=== PATIENT | female | born 1965 | race Caucasian/White ===

== ENCOUNTER 2017-02-11 15:34 | Emergency (ER) | payer MEDICARE, MEDICAID ==
[~2017-02-11] VITALS: Ht 152.4 cm; Wt 82.7 kg
[~2017-02-11 15:34] MED LIST: ATEN50TA7 PO; CLONAZEPAM0.5 M1 PO; GLPZ5T1 PO; GLU500 PO; LOV40 SQ; OXYC-176 PO
[2017-02-11 15:36] VITALS: BP 114/88; PULSE 81; RESP 16; O2SAT 97
--- NOTE | 2017-02-11 15:47 | ED.REPORT ---
HPI-General Illness Date of Service Feb 11, 2017 ED Provider: Clarita Mendoza MD A 51 year old female with a history of diabetes and foot and arm neuropathy presents to the ED complaining of left sided back pain,that stretches from left hip to left shoulder, onset 4-5 days ago. Pain was initially tender but then became progressively worse. She describes the area as tender from the spine outwards and "hard." She cannot lay or sit down. Associated symptoms include difficulty breathing, describing that she cannot get a full breath. She has hot flashes, but she denies any fever, chills, or problems with urination. Nursing Notes Stated Complaint: LEFT SIDE PAIN Chief Complaint: General Complaint Nursing Notes Reviewed: Yes Allergies: Coded Allergies: Penicillins (Verified Allergy, Severe, Anaphylaxis, 02/11/17) thiabendazole (Verified Allergy, Severe, Anaphylaxis, 02/11/17) Uncoded Allergies: BEE VENOM (Allergy, Severe, 09/29/16) MINT (Allergy, Unknown, 09/29/16) Scheduled Atenolol-Expunged Drug, Do Not Renew! (Atenolol-Expunged Drug, Do Not Renew!) 50 Mg Tablet 50 MG PO AM Enoxaparin-Expunged Drug, Do Not Renew! (Lovenox-Expunged Drug, Do Not Renew!) 40 Mg/0.4 Ml Disp.syrin 40 MG SQ DAILY Metformin-Expunged Drug, Do Not Renew! (Metformin-Expunged Drug, Do Not Renew!) 500 Mg Tablet 500 MG PO BID clonazePAM-Expunged Drug, Do Not Renew! (clonazePAM-Expunged Drug, Do Not Renew! ) 0.5 Mg Tablet 0.5 MG PO PRN glipiZIDE-Expunged Drug, Do Not Renew! (glipiZIDE-Expunged Drug, Do Not Renew!) 5 Mg Tablet 5 MG PO BID Scheduled PRN Oxycodone/APAP-Expunged Drug, Do Not Renew! (Percocet 5/325-Expunged Drug, Do Not Renew!) 1 Each Tablet 1 TAB PO Q3-4HP PRN PRN General Time Seen by MD: 15:44 Chief Complaint Back pain Hx Obtained From: Patient Arrived By: Walk-in Sudden in Onset?: No Onset Occurred: 5 days ago (4-5 days ago) Symptom Duration: Since onset Location: : Back Severity: Current: Severe Severity: Maximum: Severe Recent Healthcare: No recent doctor visit Similar Sx Previous: No Past Medical History Past Medical History Notes: Past Medical History Foot and arm neuropathy. h/o lymphoma stable pulmonary nodules Reports: Diabetes mellitus Past Surgical History left knee replacement in 09 Reports: Cholecystectomy Smoking History Current Every Day Smoker Social History "[place]" smoking recovery porgram started about 1 week ago. Denies IV drug use Alcohol Use: Denies alcohol use Drug Use: THC (at night, for feet and leg neuropathy) Occupation lives with daughter, 09/29/2016 Review of Systems heat flashes Difficulty breathing Denies problems with urination Full Review of Systems Constitutional: Denies: Chills, Fever Musculoskeletal: Reports: Back pain Complete sys rev & neg: except as marked. Physical Exam Vital Signs Vital Signs Date Time Temp Pulse Resp B/P Pulse Ox O2 Delivery O2 Flow Rate FiO2 02/11/17 17:59 78 18 135/67 98 Room Air 02/11/17 15:36 36.8 81 16 114/88 97 Room Air Initial VS: Reviewed General/Constitutional: Awake, Alert Head / Eyes: Atraumatic, Normocephalic, PERRL, EOMI ENT: Atraumatic, Mucous membranes moist Respiratory / Chest: Breath sounds NL, Breath sounds = bilat, No respiratory distress, No rales, No rhonchi, No wheezing Left posterior rib cage down to left CVA, fullness all the way out, exquisitley tender wihthout point tenderness. Cardiovascular: Heart rate NL, Regular rhythm, Heart sounds NL, No gallop, No murmurs, No rubs Abdomen: No guarding, No rebound Skin: Atraumatic, Color NL, Warm, Dry Neurologic: Oriented X3, Speech NL Interpretation & Diagnostics Lab Results Interpretation Result Diagram: 02/11/17 1645 02/11/17 1645 Test 02/11/17 16:21 02/11/17 16:40 02/11/17 16:45 Hold Urine Received (Received) Hold Purple Top Tube Received (Received) Hold Blue Top Tube Received (Received) Hold [place] Top Tube Received (Received) Hold [place] Top Tube Received (Received) White Blood Count 13.8th/mm3 (3.8-10.1) Red Blood Count 5.39mil/mm3 (3.90-5.20) Hemoglobin 15.1g/dL (12.0-15.6) Hematocrit 44.4% (35.0-46.0) Mean Corpuscular Volume 82.4fL (81-100) Mean Corpuscular Hemoglobin 28.0pg (27.0-35.0) Mean Corpuscular Hemoglobin Concent 34.0% (32.0-37.0) Red Cell Distribution Width 12.5% (12.3-15.4) Platelet Count 336bil/L (150-400) Neutrophils (%) (Auto) 51.1% (40-74) Lymphocytes (%) (Auto) 37.0% (14-46) Monocytes (%) (Auto) 8.2% (4-12) Eosinophils (%) (Auto) 2.5% (0-5) Basophils (%) (Auto) 0.8% (0-3) Urine Color Straw (YELLOW) Urine Appearance Clear (CLEAR,HAZY) Urine pH 5.0 (5.0-8.0) Urine Specific [place] <1.005 (1.003-1.035) Urine Protein Negativemg/dL (NEG,TRACE) Urine Glucose (UA) >1000mg/dL (NEGATIVE) Urine Ketones Negativemg/dL (NEGATIVE) Urine Occult Blood Negative (NEGATIVE) Urine Nitrite Negative (NEGATIVE) Urine Bilirubin Negative (NEGATIVE) Urine Urobilinogen Normalmg/dL (NORMAL) Urine Leukocyte Esterase Small (NEGATIVE) Urine RBC 0-2/hpf (0-2) Urine WBC 0-5/hpf (0-5) Urine Epithelial Cells Moderate/hpf (NONE-MOD) Urine Crystals None seen (NONE SEEN) Urine Bacteria Few/hpf (NONE-FEW) Urine Hyaline Casts Rare/lpf (NONE) Urine Granular Casts None seen (NONE SEEN) Urine Waxy Casts None seen (NONE SEEN) Urine Red Blood Cell Casts None seen (NONE SEEN) Urine White Blood Cell Casts None seen (NONE SEEN) Urine Mucus None seen (None Seen) Urine Trichomonas None seen (NONE SEEN) Urine Yeast Few (NONE SEEN) Urinalysis Comment None Urine Culture Reflexed Indicated Sodium Level 128mEq/L (134-144) Potassium Level 3.4mEq/L (3.5-5.2) Chloride Level 85mEq/L (97-108) Carbon Dioxide Level 22mmol/L (18-29) Blood Urea Nitrogen 26mg/dL (6-24) Creatinine 0.85mg/dL (0.57-1.00) Estimat Glomerular Filtration Rate 100mL/min (>59) Glucose Level 425mg/dL (60-99) Calcium Level 9.7mg/dL (8.5-10.1) Magnesium Level 2.2mg/dL (1.6-2.6) Total Bilirubin 0.3mg/dL (0.0-1.2) Aspartate Amino Transf (AST/SGOT) 19U/L (0-50) Alanine Aminotransferase (ALT/SGPT) 9U/L (0-32) Alkaline Phosphatase 82U/L (25-150) Total Protein 8.1g/dL (6.4-8.4) Albumin 4.5g/dL (3.4-5.0) Lipase 25U/L (13-60) ECG Interpretation ECG Interpretation: Rate is 75. Sinus rhythm. Incomplete left bundle branch block. Inferior infarct, old. Time: 17:43 Interpreted by: ED physician CT Abd / Pelvis Interpretation IMPRESSION: 1. Cause of left flank pain and lower back pain is not identified. 2. In this patient with history of lymphoma there continues to be enlarged liver is slightly smaller than on the previous CT scan 2014. The multiple small nodules in the lungs are unchanged or smaller. No new nodules are seen. No adenopathy is seen. 3. Previous cholecystectomy. Dictated by: Marco Antonio Carlson M.D. on 02/11/2017 at 18:15 Approved by: Marco Antonio Carlson M.D. on 02/11/2017 at 18:29 Interpretation / Wet Read by: Interpret - Radiologist Re-Eval/Medical Decision Source of Hx: Old records Counseled Regarding: Diagnosis, Lab results, Need for follow-up, When/why to return to ED Discharge & Departure Primary Impression: Pleurisy Additional Impression: Chest pain, non-cardiac Disposition: Home Additional Instructions: Your lab work and CT scan of the chest and abdomen is unremarkable and quite reassuring. I see no evidence of severe lung disease, heart disease, or kidney disease I see no evidence for infection. In looking very closely at the CT scan over the area of your back and flank, that area that hurts, there are no abnormalities appreciated My best explanation for your pain at this point is likely some type of pleuritic pain. Ibuprofen is going to be degenerative choice for this. With the severity of the pain you are currently having, and inability to sleep, I do believe that one to 2 days of narcotic use for the acute pain will likely be helpful If you find that you are getting worse, please feel free to return to the emergency department for additional evaluation. I hope you feel better soon Referrals: Harpreet Rich MD (PCP) Scribe Attestation Portions of this note were transcribed by Eduar Fitzpatrick. I, Dr. Mendoza personally performed the history, physical exam and medical decision-making; I reviewed and confirmed the accuracy of the information in the transcribed note. Signed by: Liss Perez, 02/11/2017, 1849. copies to: Harpreet Rich MD, Shawna L MD Feb 11, 2017 15:47 Eduar Fitzpatrick Feb 11, 2017 16:13
[2017-02-11] MEDS ORDERED: 0.9% Sodium Chloride 1,000 ML IV ONE (16:59)
[2017-02-11] MEDS ORDERED: HYDROmorphone 1 mg/mL Inj IVPUSH PRN (17:00)
[2017-02-11] MEDS ORDERED: Ondansetron 2 mg/mL 2 mL Inj IVPUSH PRN (17:00)
[2017-02-11] MEDS ORDERED: HYDROmorphone 0.5 mg/0.5 mL iSecure Syringe IVPUSH PRN (17:00)
[2017-02-11 17:16] LABS: BASOPHILS % (AUTO) 0.8 % (0-3); EOSINOPHILS % (AUTO) 2.5 % (0-5); MONOCYTES % (AUTO) 8.2 % (4-12); Mean Corpuscular Volume 82.4 fL (81-100); NEUTROPHILS % (AUTO) 51.1 % (40-74); Platelet Count 336 bil/L (150-400)
[2017-02-11 17:27] LABS: Magnesium 2.2 mg/dL (1.6-2.6)
[2017-02-11 17:43] LABS: APPEARANCE,URINE CLEAR (CLEAR,HAZY); COLOR,URINE STRAW (YELLOW)
[2017-02-11 17:44] LABS: OCCULT BLOOD,URINE NEGATIVE (NEGATIVE); UROBILINOGEN,URINE NORMAL (NORMAL)
[2017-02-11 17:59] VITALS: BP 135/67; PULSE 78; RESP 18; O2SAT 98
[2017-02-11 18:00] LABS: YEAST,URINE FEW (NONE SEEN)
--- NOTE | 2017-02-11 18:30 | DRSVH ---
PROCEDURE: CT CHEST, ABDOMEN AND PELVIS WITH CONTRAST ([id number]) INDICATIONS: Right flank/CVA/ post right thorax pain, history of lymphoma TECHNIQUE: After the administration of intravenous contrast, 5 mm thick sections acquired from the lung apices t o the symphysis. 5 mm coronal and sagittal reformats were performed, with additional 7 mm MIP reform ats through the lungs. For radiation dose reduction, the following was used: automated exposure con trol, adjustment of mA and/or kV according to patient size. COMPARISON: [facility], CT, NECK/CHEST/ABDOMEN/PELVIS W/CONTRAST, 08/05/2015, 12:39. FINDINGS: Image quality: Excellent. CHEST: Lungs and pleura: No acute airspace opacities. Scattered small peripheral nodular densities on the o rder of 34 mm are considered unchanged. The largest density at the right lung base has decreased in s ize from 17-14 mm in greatest dimension. No pleural effusions or pneumothorax. Central and periphera l airways appear patent and normal in caliber. Mediastinum: Heart size is normal. No pericardial effusion. No mediastinal or hilar adenopathy by size criteria. Those that are seen in the axilla and right hilum are unchanged. Thoracic aorta and ce ntral pulmonary arteries are normal in size. Esophagus is normal in caliber. No hiatal hernia. Chest wall: No axillary or supraclavicular adenopathy by size criteria. Thyroid gland is within nor mal limits.. ABDOMEN: Solid organs: Liver remains enlarged but has decreased slightly in overall size if there has been any change. In the coronal dimension it has decreased from 23.5 cm to 21.5 cm. Spleen is normal in size. Abnormal attenuation findings in the liver. Previously near the dome has decreased in conspicuity. S everal areas of the liver which suggests a focal/geographic fatty infiltration.. Gallbladder has bee n removed.. Biliary system is non dilated. Pancreas enhances normally. No adrenal nodules. Kidney s demonstrate normal size and enhancement, without hydronephrosis. Peritoneum and bowel: Bowel loops demonstrate normal wall thickness and caliber. No free fluid or a ir. Nodes and vessels: No retroperitoneal or mesenteric adenopathy by size criteria. Aorta and inferior vena cava are normal in size. Miscellaneous: No ventral hernias. PELVIS: Genitourinary: Bladder wall thickness is normal. Uterus and ovaries are not considered enlarged. Miscellaneous: No inguinal hernias or adenopathy. Bones: No suspicious bony lesions. No vertebral body compression fractures. IMPRESSION: 1. Cause of left flank pain and lower back pain is not identified. 2. In this patient with history of lymphoma there continues to be enlarged liver is slightly smaller than on the previous CT scan 2014. The multiple small nodules in the lungs are unchanged or smaller. No new nodules are seen. No adenopathy is seen. 3. Previous cholecystectomy. Dictated by: Marco Antonio Carlson M.D. on 02/11/2017 at 18:15 Approved by: Marco Antonio Carlson M.D. on 02/11/2017 at 18:29
[2017-02-11] MEDS ORDERED: OXYC1TAB24 PO (19:32)
[2017-02-11 19:43] VITALS: BP 139/68; PULSE 72; RESP 19; O2SAT 99
== END 2017-02-11 19:43 | disposition home or self-care (01) ==
LOC: SED 15:34
DX: R09.1 Pleurisy (principal); R07.89 Other chest pain; E11.9 Type 2 diabetes mellitus without complications; F17.200 Nicotine dependence, unspecified, uncomplicated; Z88.0 Allergy status to penicillin; Z88.8 Allergy status to other drugs, medicaments and biological substances; Z79.84 Long term (current) use of oral hypoglycemic drugs
CPT/HCPCS: 36415; 71260; 74177; 80053; 81000; 83690; 83735; 85025; 87086; 87088; 93005; 96361; 96374; 96375; 96376; 99285; J1170; J1885; J2405; J7030; Q9967

== ENCOUNTER → 2017-07-08 | Day surgery (SDC) | payer MEDICARE, MEDICAID ==
[~2017-07-08] VITALS: Ht 152.4 cm; Wt 91.0 kg
[2017-07-08] VITALS (8 sets, daily range): BP systolic 90–108; BP diastolic 53–76; PULSE 65–74; RESP 13–18; O2SAT 94–98
[~2017-07-08] MED LIST changes: +ASPI81TA3 PO; +ATEN1TAB3 PO; -ATEN50TA7 PO; +CLC200SP2; -CLONAZEPAM0.5 M1 PO; +Clindamycin 900 mg/50 mL D5W IV ONE; +Clindamycin 900 mg/50 mL D5W Premix IV ONE; +DULO60CA61 PO; +EPHEDrine Sulfate 50 mg/mL Inj IVPUSH PRN; +FAMO20T PO; +FAMO40TA6 PO; -GLPZ5T1 PO; -GLU500 PO; +Glycopyrrolate 0.2 MG/ML 1mL Inj ONE; +HYDR-656 PO; +HYDROmorphone 1 mg/mL Inj IVPUSH PRN; +IBUP800T28 PO; +INSU100I13 SUBQ; +INSU100I8 SUBQ; +LOSA25TA21 PO; -LOV40 SQ; +Lactated Ringer's 1,000 ML IV ONE; +Lactated Ringer's 1,000 ML IV SCH; +Lactated Ringer's 500 ML IV PRN; +Lidocaine 1%-Epi 1:100,000 20 mL Inj INFILTRATE ONE; +MetoCLOpramide 5 mg/mL 2 mL Inj IVPUSH PRN; +Neostigmine 1 mg/mL 10 mL Inj ONE; -OXYC-176 PO; +Ondansetron 2 mg/mL 2 mL Inj IVPUSH PRN; +Ondansetron 2 mg/mL 2 mL Inj ONE; +POTA20TA16 PO; +Phenylephrine 10,000 mCg/mL Inj IVPUSH PRN; +Propofol 10,000 mCg/mL 20 mL Inj ONE; +QUET300T PO; +SIMV20TA4 PO; +TIZA4TAB4 PO; +TOPI-31 PO; +fentaNYL-PF 50 mCg/mL 2 mL Inj IVPUSH PRN; +fentaNYL-PF 50 mCg/mL 2 mL Inj ONE; +oxyCODONE-Acetamin 5-325 mg Tablet PO PRN
--- NOTE | 2017-07-08 12:06 | PCM.HPANE ---
Patient Data Date of Service: Jul 08, 2017 Surgeon Admitting Provider: Attending Provider:Tal Layne DO Primary Care Physician:Harpreet Rich MD Other Provider:Mehul Olivas Anesthesia Reason for Visit Left Rotator Partial Tear, Acromial Clavicular Ht/WT & BMI Height (Feet): 5 Height (Inches): 0 Weight (Kilograms): 91 Body Mass Index 39.00 Allergies Coded Allergies: Penicillins (Verified Allergy, Severe, Anaphylaxis, 07/05/17) thiabendazole (Verified Allergy, Severe, Anaphylaxis, 07/05/17) Uncoded Allergies: BEE VENOM (Allergy, Severe, Anaphylaxis, 07/05/17) MINT (Allergy, Severe, Hives, then passes out, 07/05/17) Past Anesthesia History Anesthesia History: Denies:: Abnormal Airway, Anesthesia Reactions, Difficult Intubation, Fam Anesthesia Reaction, Fam Malignant Hypertherm, Malignant Hyperthermia Diabetes History Hx Diabetes?: Yes Type of Diabetes: Type II Glycemic Control: Insulin Dependent Current Bedside Blood Glucose: 88 MRSA MRSA: No Medications Last Dose Blood Thinner: Jul 05, 2017 Hypertension Medication: Yes Home Meds Incl Beta Emily: Yes Date Beta Emily Taken: Jul 08, 2017 Time Beta Emily Taken: 0800 Reported Medications Ibuprofen 800 Mg Efarwi492 Mg PO TID PRN For Pain Ref 0 07/05/17 Tizanidine 4 Mg Tablet4 Mg PO HS 07/05/17 Duloxetine 60 Mg Capsule.dr60 Mg PO BID Ref 0 07/05/17 Topiramate 100 Mg Xlprbq403 Mg PO BID Ref 0 07/05/17 Simvastatin 20 Mg Awdqul77 Mg PO QAM Ref 0 07/05/17 Quetiapine Fumarate (Seroquel)300 Mg Irbnia998 Mg PO HS Ref 0 07/05/17 Potassium Chloride 20 Meq Tab.er.prt20 Meq PO DAILY 30 Days Ref 0 TAKE WITH FOOD 07/05/17 Losartan Potassium 25 Mg Tiesjz85 Mg PO DAILY 07/05/17 Insulin Glargine (Lantus U100 Solostar Insulin Pen)100 Unit/1 Ml Insuln.pen20 Unit SUBQ BID #1 PENINJ Ref 0 07/05/17 hydrOXYzine Hcl (HydrOXYzine Hcl)25 Mg Lovxjw09 Mg PO TID PRN For Itching Ref 0 07/05/17 Famotidine (Pepcid)20 Mg Jxizrn85 Mg PO BID 07/05/17 Calcitonin [place] (Miacalcin)30 [place]/3.7 Ml Nasalspr1 [place] NA DAILY #1 BOTTLE [place] in 1 Nostril (Alternating Nostrils) Daily 07/05/17 Atenolol/Chlorthalidone 50-25 mg 1 Each Tablet1 Tablet PO DAILY . Ref 0 07/05/17 Aspirin Chew 81 Mg Chew81 Mg PO DAILY Ref 0 07/05/17 Insulin Glulisine (Apidra U100 Insulin Solostar Pen)100 Unit/1 Ml Insuln.pen1 Unit SUBQ DIRECTED PRN blood glucose #1 PENINJ Ref 0 07/05/17 Discontinued Reported Medications Famotidine 40 Mg Gnncol07 Mg PO HS Ref 0 07/05/17 Oxycodone/APAP-Expunged Drug, Do Not Renew! (Percocet 5/325-Expunged Drug, Do Not Renew!)1 Each Tablet1 Tab PO Q3-4HP PRN Ref 0 04/19/09 Enoxaparin-Expunged Drug, Do Not Renew! (Lovenox-Expunged Drug, Do Not Renew!) 40 Mg/0.4 Ml Disp.syrin40 Mg SQ DAILY 5 Days Ref 0 04/19/09 Metformin-Expunged Drug, Do Not Renew! 500 Mg Uxcxzu512 Mg PO BID Ref 0 04/15/09 glipiZIDE-Expunged Drug, Do Not Renew! 5 Mg Tablet5 Mg PO BID Ref 0 04/15/09 clonazePAM-Expunged Drug, Do Not Renew! 0.5 Mg Tablet0.5 Mg PO PRN Ref 0 04/19/09 Atenolol-Expunged Drug, Do Not Renew! 50 Mg Nbfuqv17 Mg PO AM Ref 0 04/19/09 Discontinued Scripts oxyCODONE-Acetaminophen 5-325 mg 1 Each Tablet1-2 Tab PO Q6H PRN For Pain #14 TABLET Prov:Clarita Mendoza MD 02/11/17 History History of ENT Problems?: No HEENT History: Positive for:: Sinus Problem (seasonal allergies) Denies:: Abnormal Airway Difficult Intubation Dysphagia Hearing Problem TMJ Denture Type: None Teeth Condition: Within Normal Limits Missing Teeth Hx of Heart Problems?: Yes Cardiovascular History: Positive for:: Hypertension Denies:: Congestive Heart Failure Hx of Respiratory Problem?: Yes Respiratory History: Positive for:: COPD (earliy stage) Pneumonia (last 1988) Use of Inhalers / NEBS (Ventolin ) Denies:: Chest Surgery Cough Dyspnea Emphysema Hemoptysis Pulmonary Embolism Tuberculosis Use of C-PAP Machine Hx Neurologic Problems?: Yes (lower extremity diabetic neuropathy) Neurological History: Denies:: Alzheimer's Disease CVA Dementia Dizziness Headaches Parkinson's Disease Seizures TIA Hx of GI Problems?: No Hx of Problems?: No Genitourinary History: Denies:: HX of Hemodialysis Kidney Stones Urinary Tract Infection HX of Peritoneal Dialysis: No Female Hx: Denies:: Currently Problems with Breasts? Skin History: Denies:: History Skin Disorders? Pressure Ulcers Hx Musculoskeletal Problems?: Yes Musculoskeletal History: Positive for:: Back Injury Joint Replacement (lt total knee replacement) Musculoskeletal Trauma (Rt shoulder fx) Osteoarthritis Denies:: Rheumatoid Arthritis Systemic Lupus Hx of Psycho/Social Problems?: No Psycho Social History: Denies:: Anxiety Hx Depression Hx Surgeries?: Yes (c-secx2,choly,left knee) Other History: Positive for:: Hospitalization (back pain) Denies:: Cancer Endocrine Disease Thyroid Disease History Blood Transfusions: Positive for:: Accept Blood Products? Denies:: Blood Transfusions Hx Diabetes: YesBedside Blood Glucose: 88 Hx Alcohol Use: NoHx Substance Use: Yes (marijuana eatables) Smoking Status: Current Every Day Smoker Have You Smoked inLast 12 mo: YesApprox How Many Cigarettes/day: 15 Stop/Bang S-Snoring: Do You Snore Loudly: No T-Tired: feel tired, fatigued: No O-Obsered: Observed not breath: No P-Blood Pressure: treated: No B- Body Mass Index > 35 kg/m2: Yes A- Age over 50: Yes N- Neck Large Circumference: No G- Gender Male: No LIBIA Total Score: 2 LIBIA Risk Assessment: Low Risk, <3 Yes Risk Assessment Category Category 1A: Patient has history of documented sleep apnea, and HAS NOT received any narcotic, sedative or anesthesia administration during this stay. Category 1B: Patient has history of documented sleep apnea, and HAS received any narcotic , sedative or anesthesia administration during this stay Category 2: Patient has SUSPECTED Obstructive Sleep Apnea, and HAS received any narcotic , sedative or anesthesia administration during this stay. Category 3: Patient has SUSPECTED Obstructive Sleep Apnea and HAS NOT received narcotic, sedative or anesthesia administration during this stay. Category 4: Outpatient in Procedural Areas with known sleep apnea or who screen positive for High Risk via the STOP/BANG questionnaire. Exam Exam Vital Signs Vital Signs Date Time Temp Pulse Resp B/P Pulse Ox O2 Delivery O2 Flow Rate FiO2 07/08/17 11:00 36.6 74 16 106/60 95 Room Air General Appearance: Alert, Oriented X3, Cooperative HEENT/AIRWAY: MP 2, Neck Movement (OK), Mouth Opening (Wide), Other (missing front lower tooth, previous easy intubation) Lungs: Normal Air Movement, Wheezes (slight) Heart: Regular Rate/Rhythm, Normal S1, Normal S2 Meds/Labs/Diagnostics Admission Meds Current Medications Lactated Ringer's (Lr) 1,000 ml @ ud STK-MED ONCE IV Last administered on 07/08t 11:34; Start 07/08/17 at 11:34; Stop 07/08/17 at 11:35; Status DC Bedside Blood Glucose: 88 Plan Impression Patient chart reviewed, patient interviewed and anesthestic plan with risks, benefits, and alternatives discussed, and informed consent obtained. NPO per Anesth. Guidelines: Yes ASA Physical Status: ASA3 Severe Disease (COPD, DM with neuropathy) Anesthetic Plan: GA, Regional Block (interscalene) Bene/Risks/Altern/Consents: Yes HP Complete Prior to Induction: Yes Adrian Ledbetter MD Jul 08, 2017 12:06
--- NOTE | 2017-07-08 18:00 | PCM.ANEP1 ---
Post Anesthesia PACU Phase 1 Assessment Vital Signs Vital Signs Date Time Temp Pulse Resp B/P Pulse Ox O2 Delivery O2 Flow Rate FiO2 07/08/17 15:45 36.5 70 18 101/63 96 Room Air 07/08/17 15:10 36.4 65 18 90/76 97 Nasal Cannula 2 07/08/17 15:00 69 16 105/58 94 Nasal Cannula 2 07/08/17 14:45 66 14 104/55 94 Nasal Cannula 2 07/08/17 14:40 69 15 107/68 98 Simple Mask 8 07/08/17 14:35 65 13 108/53 98 Simple Mask 8 07/08/17 14:30 36.0 66 17 103/64 98 Simple Mask 8 07/08/17 11:00 36.6 74 16 106/60 95 Room Air Anesthetic Administered: GA, Regional Block Level of Alertness: Awake, talking Pain: No Nausea or Vomiting: No CV Function & Hydration Stable: Yes Airway Device: Oxygen Delivery: Room Air Lungs: Normal Air Movement, Wheezes (slight) PACU Phase 2 Assessment Patient Instructions Provided: N/A Magdiel Gallardo MD Jul 08, 2017 18:00
--- NOTE | 2017-07-08 23:09 | OP ---
[address] [address] OPERATIVE REPORT PATIENT: HARRISON BOWER : 1965 MR#: [id number] ADMIT: 07/08/2017 JOB ID: [id number] DATE OF SURGERY: 07/08/2017 PREOPERATIVE DIAGNOSIS(ES): 1. Left shoulder rotator cuff tendinopathy. 2. Left shoulder impingement syndrome. 3. Left shoulder bicipital tendinopathy. 4. Left shoulder acromioclavicular arthritis. POSTOPERATIVE DIAGNOSIS(ES): 1. Left shoulder rotator cuff tendinopathy. 2. Left shoulder type 2 SLAP tear with degenerative labral tearing. 3. Left shoulder impingement syndrome. 4. Left shoulder acromioclavicular arthritis. SURGERIES AND PROCEDURES: 1. Left shoulder arthroscopy with extensive debridement including debridement of the rotator cuff, subacromial bursitis, degenerative labrum. 2. Left shoulder arthroscopy with biceps tenotomy. 3. Left shoulder arthroscopy with subacromial decompression and acromioplasty. 4. Left shoulder arthroscopy with distal clavicle excision. SURGEON: Tal Layne D.O. MANAGER PERSONNEL SELECTION: Seamus Butcher PA-C. The assistance of Marco Antonio Butcher PA-C was necessary for help with manipulation of the intra-articular equipment, including the camera. He was also utilized for primary closure at the conclusion of the case. BRIEF HISTORY: The patient is a 51-year-old female with a long history of left shoulder pain. She failed conservative treatment including injection therapy, exercise, as well as anti-inflammatories. MRI demonstrated mainly signs of tendinopathy of the rotator cuff and clinically also of the biceps. She did demonstrate impingement signs as well as acromioclavicular arthritis. I gave the patient the option as she had failed conservative treatment to proceed with a left shoulder arthroscopy with debridement, possible repair of the rotator cuff, possible biceps tenodesis, subacromial decompression, distal clavicle excision. The patient understood the risks including, but not limited to, neurovascular injury, tendon injury, infection, failure to resolve the patient's preoperative symptoms, stiffness or persistent pain which will require further intervention. The patient had all questions answered. Consent was signed and placed in the chart. PROCEDURE IN DETAIL: The patient was brought to the operative suite and placed supine on the operating room table. Surgical time-out was performed. Everyone in the room was in agreement. After appropriate anesthesia was obtained, the patient was placed in the beach chair position with all prominences well padded. Left upper extremity was then prepped and draped in a sterile fashion. The arthroscopic arm nguyen was then utilized for the left arm. A standard posterior viewing portal was developed in a typical fashion. On gross observation there was significant hypertrophic synovitis, as well as degenerative labral tearing involving nearly the superior half of the labrum. The biceps anchor was not well visualized due to the amount of labral fraying and tearing to the superior aspect of the glenoid. An anterior working portal was then developed in typical fashion and shaver introduced to perform extensive debridement of synovitis, as well as the labrum, until a stable rim was left. The probe demonstrated that the superior labrum and the biceps was easily elevated off of the superior glenoid; thus, decision was made to proceed with the biceps tenotomy. Biceps tenotomy was then performed and a shaver used to debride back the stump until there was a stable rim of the labrum. Undersurface of the rotator cuff was evaluated and found to be intact. The camera was then brought into the subacromial space. On gross observation, there was significant hypertrophic bursa. A lateral working portal was then created and extensive bursectomy was then performed. The bursal surface of the rotator cuff could then be visualized and probed and there was no evidence of any rotator cuff tears. This was probed from a posterior to anterior direction. Next, attention was turned to the undersurface of the acromion. A surface electrocautery utilized to maintain visualization and to further delineate the undersurface of the acromion. There was a large anterior hook of the acromion which was most prevalent near the acromioclavicular joined. A bur was then used to perform an extensive acromioplasty. The bur was then brought through an anterior portal and distal clavicle excision performed measuring approximately 8-10 mm in width. The arthroscopic equipment was then removed from the joint. The portal was closed with nylon. The patient was then placed into a bulky dressing and a sling. ESTIMATED BLOOD LOSS: Less than 25 cc. COMPLICATIONS: None. DISPOSITION: The patient tolerated the procedure well. Anesthesia was reversed and the patient was transferred back to recovery. POSTOPERATIVE PLAN: As no repair was performed, the patient will have her sutures removed at the two week followup and wean from the sling at that time and be placed directly into formal physical therapy to work on range of motion and periscapular strengthening exercises and to progress to rotator cuff strengthening exercises as tolerated.
== END | disposition home or self-care (01) ==
LOC: SAS 10:06
PROVIDERS: ATTEND Orthopaedic Surgery
DX: M75.112 Incomplete rotator cuff tear or rupture of left shoulder, not specified as traumatic (principal); M19.012 Primary osteoarthritis, left shoulder; M75.42 Impingement syndrome of left shoulder; M67.922 Unspecified disorder of synovium and tendon, left upper arm; E11.40 Type 2 diabetes mellitus with diabetic neuropathy, unspecified; Z79.4 Long term (current) use of insulin; F32.9 Major depressive disorder, single episode, unspecified; F41.9 Anxiety disorder, unspecified; G25.81 Restless legs syndrome; G47.33 Obstructive sleep apnea (adult) (pediatric)
CPT/HCPCS: 29823; 29824; 29826; 29827; 29828; 76942; J2405; J2704; J2710; J3010; J3490; J7120